=== PATIENT | male | born 1960 | race Caucasian/White ===

== ENCOUNTER 2022-10-20 10:04 | Outpatient (RCR) | payer MEDICARE, MEDICAID, SELFPAY | END 2023-06-04 10:52 | disposition home or self-care (01) | LOC: HO.WCC 10:04 | PROVIDERS: PCP Internal Medicine; Visit Provider Physician Assistant | DX: Z09 Encounter for follow-up examination after completed treatment for conditions other than malignant neoplasm (principal); M21.371 Foot drop, right foot; G93.40 Encephalopathy, unspecified; Z87.2 Personal history of diseases of the skin and subcutaneous tissue | CPT/HCPCS: 11042; 97597; 99212; 99213 ==